=== PATIENT | female | born 2000 | race Native Hawaiian/Other Pacific Islander ===

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

== ENCOUNTER 2019-04-04 19:54 | Emergency (ER) | payer OTHER ==
[~2019-04-04] VITALS: Ht 170.2 cm; Wt 63.5 kg
[~2019-04-04 19:54] MED LIST changes: +IBU600 MG PO
== END 2019-04-04 21:41 | disposition home or self-care (01) ==
LOC: ER 19:54
DX: S69.91XA Unspecified injury of right wrist, hand and finger(s), initial encounter (principal); W01.198A Fall on same level from slipping, tripping and stumbling with subsequent striking against other object, initial encounter; Z88.5 Allergy status to narcotic agent; Z88.8 Allergy status to other drugs, medicaments and biological substances
CPT/HCPCS: 29125; 73110; 99283-25

== ENCOUNTER → 2019-10-25 | Outpatient (CLI) | payer OTHER ==
[2019-10-25 14:50] LABS: Source, Urine Clean Catch
[2019-10-25 20:26] LABS: Bacteria Many /hpf; Red Blood Cells, Urine Not Seen /hpf (0-2); Squamous Epithelial Cells Many /hpf (Few)
[2019-10-25 20:34] LABS: U Amphetamine Screen Not Detected; U Barbituate Screen Not Detected; U Benzodiazapine Screen Not Detected; U Buprenorphine Screen Not Detected; U Cannabinoids Screen Not Detected; U Cocaine Screen Not Detected; U Methadone Screen Not Detected; U Methamphetamine Screen Not Detected; U Opiates Screen Not Detected; U Oxycodone Screen Not Detected; U Phencyclidine Screen Not Detected; U Propoxyphene Screen Not Detected
== END | disposition home or self-care (01) ==
LOC: LAB 12:00 → LAB SHORT 12:00
PROVIDERS: Obstetrics & Gynecology
DX: Z34.01 Encounter for supervision of normal first pregnancy, first trimester (principal)
CPT/HCPCS: 81015; 87077; 87086; 87186

== ENCOUNTER 2020-01-19 13:17 | Emergency (ER) | payer OTHER ==
[~2020-01-19] VITALS: Ht 170.2 cm; Wt 61.2 kg
[~2020-01-19 13:17] MED LIST changes: +PRENATAL TABLE1 EAC2 PO
[2020-01-19 15:45] LABS: Source, Urine Clean Catch
[2020-01-19 15:47] LABS: Appearance, Urine Cloudy (Clear); Bilirubin, Urine Neg (Neg); Blood, Urine Neg (Neg); Color, Urine Yellow (P-Yellow); Glucose Qualitative, Urine Neg (Neg); Ketones, Urine Neg (Neg); Leukocyte Esterase, Urine 1+ (Neg); Nitrite, Urine Neg (Neg); Protein, Urine Neg (Neg); Urobilinogen, Urine NORM (Normal)
[2020-01-19 15:59] LABS: Amorphous Heavy (0-Heavy); Bacteria Few /hpf; Red Blood Cells, Urine 0-2 /hpf (0-2); Squamous Epithelial Cells Few /hpf (Few)
== END 2020-01-19 16:27 | disposition home or self-care (01) ==
LOC: ER 13:17
PROVIDERS: Physician Assistant
DX: O99.89 Other specified diseases and conditions complicating pregnancy, childbirth and the puerperium (principal); R10.12 Left upper quadrant pain; R51 Headache; Z88.5 Allergy status to narcotic agent; Z88.8 Allergy status to other drugs, medicaments and biological substances; Z3A.22 22 weeks gestation of pregnancy
CPT/HCPCS: 76815; 81001; 87086; 87147; 99284-25

== ENCOUNTER 2020-03-12 21:46 | Observation (INO) | payer OTHER ==
[~2020-03-12] VITALS: Ht 167.6 cm; Wt 65.9 kg
[2020-03-12 23:29] LABS: BASOPHILS ABSOLUTE AUTO 0.07 K/mm3 (0.00-0.23); BASOPHILS PERCENT AUTO 1 % (0-2); EOSINOPHILS PERCENT AUTO 2 % (0-6); Hematocrit 30.7 % (33.0-51.0); Hemoglobin 10.3 g/dL (11.5-16.0); IMMATURE GRAN ABSOLUTE AUTO 0.02 K/mm3 (0.00-0.10); IMMATURE GRAN PERCENT AUTO 0 % (0-1); LYMPHOCYTES ABSOLUTE AUTO 2.43 K/mm3 (0.84-5.20); LYMPHOCYTES PERCENT AUTO 25 % (21-46); MONOCYTES ABSOLUTE AUTO 1.01 K/mm3 (0.16-1.47); MONOCYTES PERCENT AUTO 10 % (4-13); Mean Corpuscular HGB 29.5 pg (26.0-34.0); Mean Corpuscular HGB Conc 33.6 g/dL (31.5-36.5); Mean Corpuscular Volume 88 fL (80-100); Mean Platelet Volume 11.1 fL (9.1-12.4); NEUTROPHILS ABSOLUTE AUTO 6.04 K/mm3 (1.96-9.15); NEUTROPHILS PERCENT AUTO 62 % (41-73); Platelet Count 261 K/mm3 (150-400); RDW Coefficient Variation 12.7 % (11.7-14.2); RDW Standard Deviation 40.2 fL (35.1-46.3); Red Blood Cell Count 3.49 M/mm3 (3.80-5.20); White Blood Cell Count 9.77 K/mm3 (4.00-11.30)
[2020-03-12 23:45] LABS: Alanine Aminotransfer (ALT/SGP 20 U/L (12-78); Albumin, Blood 2.4 g/dL (3.4-5.0); Albumin/Globulin Ratio 0.6 (0.8-1.8); Alk Phos 151 U/L (50-136); Anion Gap 6 mmol/L (6-16); Aspartate Aminotrans (AST/SGOT 14 U/L (12-37); Bilirubin, Total 0.2 mg/dL (0.1-1.0); Blood Urea Nitrogen 6 mg/dL (8-24); Bun/Creatinine Ratio 10.2 (12.0-20.0); CO2, Blood 26 mmol/L (21-32); Calcium, Blood 8.6 mg/dL (8.5-10.1); Chloride, Blood 107 mmol/L (98-108); Creatinine, Blood 0.59 mg/dL (0.40-1.00); Glomerular Filtration Rate >60 (60-); Glucose, Blood 74 mg/dL (70-99); Potassium, Blood 3.9 mmol/L (3.5-5.5); Sodium, Blood 139 mmol/L (136-145); Total Protein, Blood 6.4 g/dL (6.4-8.2)
--- NOTE | 2020-03-13 07:16 | NUR ---
pt on EFM, pt answers questions slowly and quietly (like she is unsure of her answer) reports has lower abd pain that comes and goes she reports, reports has a headache, but has had the headache for a while. pt mom is her support person. pt given fresh ice water
--- NOTE | 2020-03-13 07:44 | NUR ---
dr anderson in talking with pt
--- NOTE | 2020-03-13 08:09 | NUR ---
DC INSTRUCTIONS GONE OVER WITH PT AND MOM, VERBALIZED UNDERSTANDING, SL DCD CATH INTACT, PT TO GET DRESSED AND GO HOME. DID GIVE FAMILY BITH PLACE NUMBER TO MOM AND PT TO CALL WITH [facility] IF HAD ANY
== END 2020-03-13 08:35 | disposition home or self-care (01) ==
LOC: OBS 21:46 → BC 21:47 → OBS 03-13 00:45 → BC 03-13 00:58
PROVIDERS: ADMIT Advanced Practice Midwife
DX: O26.853 Spotting complicating pregnancy, third trimester (principal); O99.333 Smoking (tobacco) complicating pregnancy, third trimester; F17.210 Nicotine dependence, cigarettes, uncomplicated; Z3A.30 30 weeks gestation of pregnancy; O99.513 Diseases of the respiratory system complicating pregnancy, third trimester; J45.909 Unspecified asthma, uncomplicated
CPT/HCPCS: 59025; 80053; 81003; 82731; 85025; 96360; 96361; A9270; G0378; J7120

== ENCOUNTER → 2020-04-25 | Outpatient (CLI) | payer OTHER ==
[~2020-04-25] MED LIST changes: +Percocet 5-3251 EACH PO
== END | disposition home or self-care (01) ==
LOC: LAB SHORT 15:26
DX: O09.93 Supervision of high risk pregnancy, unspecified, third trimester (principal)
CPT/HCPCS: 87081; 87150

== ENCOUNTER 2020-05-03 14:00 | Inpatient (IN) | payer OTHER ==
[~2020-05-03] VITALS: Ht 170.2 cm; Wt 69.0 kg
[~2020-05-03 14:00] MED LIST changes: -Percocet 5-3251 EACH PO
--- NOTE | 2020-05-03 17:13 | NUR ---
LABS DRAWN URINE SENT TO LAB
[2020-05-03 17:14] LABS: Influenza A, PCR Negative (NEGATIVE); Influenza B, PCR Negative (NEGATIVE); Resp Syncytial Virus, PCR Negative (NEGATIVE); SARS-Cov-2 (COVID-19) PCR, MMC Negative (NEGATIVE)
[2020-05-03 17:23] LABS: BASOPHILS ABSOLUTE AUTO 0.05 K/mm3 (0.00-0.23); BASOPHILS PERCENT AUTO 1 % (0-2); EOSINOPHILS PERCENT AUTO 1 % (0-6); Hematocrit 35.3 % (33.0-51.0); Hemoglobin 11.6 g/dL (11.5-16.0); IMMATURE GRAN ABSOLUTE AUTO 0.03 K/mm3 (0.00-0.10); IMMATURE GRAN PERCENT AUTO 0 % (0-1); LYMPHOCYTES PERCENT AUTO 25 % (21-46); MONOCYTES ABSOLUTE AUTO 0.67 K/mm3 (0.16-1.47); MONOCYTES PERCENT AUTO 9 % (4-13); Mean Corpuscular HGB 28.8 pg (26.0-34.0); Mean Corpuscular HGB Conc 32.9 g/dL (31.5-36.5); Mean Corpuscular Volume 88 fL (80-100); Mean Platelet Volume 11.1 fL (9.1-12.4); NEUTROPHILS ABSOLUTE AUTO 4.57 K/mm3 (1.96-9.15); NEUTROPHILS PERCENT AUTO 63 % (41-73); Platelet Count 275 K/mm3 (150-400); RDW Coefficient Variation 13.7 % (11.7-14.2); RDW Standard Deviation 43.9 fL (35.1-46.3); Red Blood Cell Count 4.03 M/mm3 (3.80-5.20); White Blood Cell Count 7.22 K/mm3 (4.00-11.30)
[2020-05-03 17:44] LABS: Creatinine, Urine Random 51.2 mg/dL (27.00-270.00); Protein, Urine Random 14.2 mg/dL (0.0-11.9); Protein/Creat Ratio, Ur Random 0.3
[2020-05-03 17:44] LABS: Alanine Aminotransfer (ALT/SGP 14 U/L (12-78); Albumin, Blood 2.6 g/dL (3.4-5.0); Albumin/Globulin Ratio 0.6 (0.8-1.8); Alk Phos 253 U/L (50-136); Anion Gap 9 mmol/L (6-16); Aspartate Aminotrans (AST/SGOT 18 U/L (12-37); Bilirubin, Total 0.2 mg/dL (0.1-1.0); Blood Urea Nitrogen 8 mg/dL (8-24); Bun/Creatinine Ratio 13.9 (12.0-20.0); CO2, Blood 22 mmol/L (21-32); Calcium, Blood 9.5 mg/dL (8.5-10.1); Chloride, Blood 105 mmol/L (98-108); Creatinine, Blood 0.57 mg/dL (0.40-1.00); Globulin, Blood 4.5 g/dL (2.2-4.0); Glomerular Filtration Rate >60 (60-); Glucose, Blood 74 mg/dL (70-99); Sodium, Blood 136 mmol/L (136-145); Total Protein, Blood 7.1 g/dL (6.4-8.2)
[2020-05-03 23:10] LABS: PCO2 Cord - Arterial 63.7 mmHg (40-50); pH Cord - Arterial 7.23 (7.28-7.35)
[2020-05-03 23:14] LABS: PCO2 Cord - Venous 56.6 mmHg (40-50); PO2 Cord - Venous 16 mmHg (28-32); pH Umbilical Cord - Venous 7.28 (7.26-7.35)
[2020-05-04 00:45] LABS: PO2 Cord - Arterial < 13 mmHg (16-20)
[2020-05-04 04:50] LABS: Hematocrit 29.1 % (33.0-51.0); Hemoglobin 9.9 g/dL (11.5-16.0); Mean Corpuscular HGB 29.1 pg (26.0-34.0); Mean Corpuscular Volume 86 fL (80-100); Mean Platelet Volume 11.2 fL (9.1-12.4); Platelet Count 234 K/mm3 (150-400); RDW Coefficient Variation 13.2 % (11.7-14.2); RDW Standard Deviation 41.1 fL (35.1-46.3); White Blood Cell Count 11.04 K/mm3 (4.00-11.30)
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
--- NOTE | 2020-05-04 18:13 | NUR ---
CORE REFERRAL COMPLETED ON PT
--- NOTE | 2020-05-05 07:10 | NUR ---
pt called RN to room to take baby so she could sleep, pt made aware that she has 2 support people in her room, her boyfriend is sitting in a chair and her mom is laying in the dad bed trying to rest, that the baby needs to stay in their room and cant be out at the desk. the fob said he could watch the baby since he is going to be up watching TV. they were also made aware that we are trying to keep baby's in the room as much as possible due to covid and limiting exposure to other people, (today there is no floor OBT to watch baby in nursery). patient reports she only slep 2 hours last night, encourged her to sleep while the boyfriend watched the baby. he turned the tv on, baby in crib under dry erase board and boyfriend in front on monitor turned the tv on. encouraged them to take turns sleeping, one awake watchig baby and one sleeps. 2 support people were aloud for this patient, she has some developmental delays. when she was here for her bpp/nst and her id bracelet was placed on her (by nanci storyc), she reports she sometimes has a hard time spelling her name. she was able to spell her name and give date of , but she had to think about it. there is some concern about her caring for this baby.
--- NOTE | 2020-05-05 08:17 | NUR ---
went in room, baby was crying, mom was smiling, trying to feed baby, reports he is hungery, he just feed from a bottle at 0700 24cc, he was just laying on her chest with mouth on nipple, explained that baby just might want to be held and snuggled since he just feed. she asked if RN wanted to hold him. unsure is she ment for me to stay in room and hold him or just to hold him for a minute since i helped admit her. foleah reports she cant stay in here she has to do other stuff, so he wasnt sure what she ment either, i held him for a couple of minutes and gave him to fob who had a pillow ready on his lap to hold baby. mom was smiling and reported might try to get up and walk soon.
--- NOTE | 2020-05-05 09:56 | NUR ---
pt is sleeping, pt mom is sitting in chair holding baby. fob is sleeping on dad bed
--- NOTE | 2020-05-05 10:41 | NUR ---
pt coninutes to sleep, pt mom reports going to leave soon and will wake pt up when she leaves. darnell just went to sleep at 0945ish and is sleeping on the dad bed
--- NOTE | 2020-05-05 11:45 | NUR ---
asked approperiate questions about how heavy she could lift, wanted to make sure she could lift baby weight strauss, sh cnm reports about 10lbs is what she can lift. pt mom left to go home and reported would be back at 7pm unless she was needed. the pt reported she would need her sooner and said for her to come back at 530-6pm. pt mom reported would be back around there. the mom had to go home and get ready for baby to come home
--- NOTE | 2020-05-05 12:42 | NUR ---
called rn in room to put baby in bed, she is afraid to do it herself, encoruaged that next time have someone stand by so she can try, she reports will wait until her mom comes back, evangelina (fob is sleeping on dad bed) encouraged for her to wake evangelina up and try next time, that her mom isnt always going to be able to help her. the patient is very dependent on her mom to do things or help her instead of fob.
--- NOTE | 2020-05-05 13:19 | NUR ---
amubulate in [place], pt tried to walk the [place] in her abd binder, and tank top only, encouraged her back in room and got her a robe. pt did well on her walk, talked to baby on the walk. pt reports has help at home her mom and grandma, but that the baby was her best friend. pt is very loving to baby and talks and smiles at baby, just scared to do daily care with him, but didnt seem scared to bottle feed him when she did.
--- NOTE | 2020-05-05 14:55 | NUR ---
pt back from #3 walk, walked her second walk and 30 min later walked again. when go back to room, baby a little fussy, she talked to the baby then realized she needed to check his diaper, it was dry and clean, then she woke FOB up to help swaddle baby because she couldnt wrap his arms for swaddling, fob go up helped her swaddle the baby and then mom got back in bed with baby in her arms, she did call for rn to bring her a pillow for her arm cause it was falling asleep holding the baby. pt talks and smiles at baby
--- NOTE | 2020-05-05 17:27 | NUR ---
pt not crazy about the dinner she choose, encouraged her to walk to cafeteria with her mom and a food voucher to get something different. she was worried on who would watch the baby. darnell is still sleeping on the dad bed, encouraged to wake him up and have him watch baby while she walked to cafeteria. darnell has been sleeping since 944, he has woken up a few times to help mom for 10-15min then goes back to sleep, or appears to be sleeping. patient relies more on her mom than fob to help her. baby is sleeping in crib wrapped
--- NOTE | 2020-05-05 18:12 | NUR ---
up walking in [place], she is doing good. she still needs to work on baby care and not being afraid of the baby. she doesnt use fob much for helping out and relies more on her mom for help. her mom has a full job at home taking care of a 23 year old son with autism and adhd on medications, a 10 year old with autism not potty trained, and her parents (her mom helps, but her dad has dementia and parkinsons). encouraged her mom to have wilson do more of the baby care and encourage her to do the diaper changes, her mom reports wilson has a schizo (A)? disorder, bipolar, high anxiety, depression and wilson reports she has ptsd, not on any medications with an IQ of 16 per her mom. wilson has an anxiety do to help her out at home. cps was called yesterday and should call tomorrow to let us know if staffing this. there are concerns with wilson having her mom do alot of the care and not doing as much of it. that she is afraid to change a diaper or change the baby's cloths. with encouragement she tries, but when her mom is here she just tries to get her mom to do it. darnell has slept, he does help out when she wakes him up, but says he has stomach problems and his stomach is bothering him??
--- NOTE | 2020-05-06 09:00 | NUR ---
DR RIOS AND DR PETERSEN AT BEDSIDE. DISCUSSING PLAN OF CARE WITH PT. ALSO ASKING ABOUT LIVING SITUATION. PT, FOB AND MOTHER IN ROOM. PLAN IS FOR PT TO LIVE WITH MOM AND MOM PLANS TO HELP WITH . SAYS IT IS A SAFE AREA. MOM HAS BEEN HELPING TAKE CARE OF INFANT WHILE IN HOSPITAL AND PLANS TO CONTINUE THIS AT HOME. THIS MORNING PT HAS BF AND BOTTLE FED . HAS BEEN APPROPRIATE WITH INFANT CARE AND QUESTIONS ASKED.
[2020-05-06] MEDS ORDERED: Percocet 5-3251 EACH PO (10:34)
--- NOTE | 2020-05-06 10:49 | NUR ---
RN ROUNDED TO HELP W/ . INSTRUCT/DEMO WIDENING LATCH, CORRECT POSITIONING, AND NIPPLE SHAPE AFTER FEEDS. INSTRUCTED PT AND PT'S SUPPORT PERSON TO FEED NB EVERY 2-3 HOURS, FOR NO LONGER THAN 15-20 MINUTES AT THE BREAST, FOLLOWED BY SUPPLEMENTING NB AFTER EACH FEED W/ A BOTTLE, ALLOWING NB TO TAKE MUCH VOLUME NB WANTS. PT AND PT'S SUPPORT PERSON VERBALIZED UNDERSTANDING.
--- NOTE | 2020-05-06 13:35 | NUR ---
PT EXCITED TO GO HOME. FILLING OUT PAPER WORK WITHOUT ASSISTANCE.
--- NOTE | 2020-05-06 14:27 | NUR ---
PT AND FOB UP IN ROOM TENDING TO INFANT. MOM FINISHED BF AND FOB CHANING INFANT INTO GOING HOME CLOTHING. DISCHARGE INSTRUCTIONS REVIEWED WITH MOM, FOB AND GRANDMA. INSTRUCTIONS SIGNED. BANDS MATCHED.
== END 2020-05-06 14:50 | disposition home or self-care (01) | DRG 787 ==
LOC: BC 14:00 → OBS 14:00 → BC 14:01 → OBS 15:35 → BC 15:37
PROVIDERS: ADMIT Obstetrics & Gynecology
PROC: 3E0P7VZ Introduction of Hormone into Female Reproductive, Via Natural or Artificial Opening (ICD-10-PCS; 2020-05-03)
PROC: 10D00Z1 Extraction of Products of Conception, Low, Open Approach (ICD-10-PCS; principal; 2020-05-03 22:00)
DX: O76 Abnormality in fetal heart rate and rhythm complicating labor and delivery (principal); O41.03X0 Oligohydramnios, third trimester, not applicable or unspecified; O36.5930 Maternal care for other known or suspected poor fetal growth, third trimester, not applicable or unspecified; O99.824 Streptococcus B carrier state complicating childbirth; Z3A.37 37 weeks gestation of pregnancy; Z37.0 Single live birth; O99.892 Other specified diseases and conditions complicating childbirth; R03.0 Elevated blood-pressure reading, without diagnosis of hypertension; Z20.828 Contact with and (suspected) exposure to other viral communicable diseases; O99.334 Smoking (tobacco) complicating childbirth; F17.210 Nicotine dependence, cigarettes, uncomplicated; R62.50 Unspecified lack of expected normal physiological development in childhood
CPT/HCPCS: 0241U; 36415; 59025; 76819; 80053; 82570; 82803; 84156; 85025; 85027; 86850; 86900; 86901; A9270; J0690; J1885; J2370; J2405; J2590; J2765; J3010; J7120

== ENCOUNTER 2020-07-23 17:49 | Emergency (ER) | payer OTHER ==
[~2020-07-23] VITALS: Ht 170.2 cm; Wt 61.2 kg
[~2020-07-23 17:49] MED LIST changes: +Percocet 5-3251 EACH PO
== END 2020-07-23 20:36 | disposition home or self-care (01) ==
LOC: ER 17:49
DX: S60.211A Contusion of right wrist, initial encounter (principal); F17.200 Nicotine dependence, unspecified, uncomplicated; Z88.5 Allergy status to narcotic agent; Z88.8 Allergy status to other drugs, medicaments and biological substances; W22.8XXA Striking against or struck by other objects, initial encounter
CPT/HCPCS: 73110; 99283-25

== ENCOUNTER 2021-05-02 22:33 | Emergency (ER) | payer OTHER ==
[~2021-05-02] VITALS: Ht 175.3 cm; Wt 54.4 kg
== END 2021-05-03 00:36 | disposition home or self-care (01) ==
LOC: ER 22:33
DX: M25.531 Pain in right wrist (principal); Z88.5 Allergy status to narcotic agent; F17.200 Nicotine dependence, unspecified, uncomplicated; W01.0XXA Fall on same level from slipping, tripping and stumbling without subsequent striking against object, initial encounter
CPT/HCPCS: 73110; A9270

== ENCOUNTER 2022-12-12 19:24 | Emergency (ER) | payer OTHER ==
[~2022-12-12] VITALS: Ht 172.7 cm; Wt 74.8 kg
[2022-12-12 20:04] VITALS: BP 139/65
[2022-12-12] MEDS ORDERED: Cleocin HCl150 MG PO (22:04)
== END 2022-12-12 22:18 | disposition home or self-care (01) ==
LOC: ER 19:24
DX: K08.89 Other specified disorders of teeth and supporting structures (principal); Z88.5 Allergy status to narcotic agent; Z88.8 Allergy status to other drugs, medicaments and biological substances; F17.200 Nicotine dependence, unspecified, uncomplicated
CPT/HCPCS: 96372; 99282-25; A9270; J1885

== ENCOUNTER 2022-12-31 20:42 | Emergency (ER) | payer OTHER ==
[~2022-12-31] VITALS: Ht 170.2 cm; Wt 61.7 kg
[~2022-12-31 20:42] MED LIST changes: +Cleocin HCl150 MG PO
[2022-12-31 21:05] VITALS: BP 125/66
[2022-12-31] MEDS ORDERED: ONDA4 PO (23:09)
== END 2022-12-31 23:19 | disposition home or self-care (01) ==
LOC: ER 20:42
DX: K08.89 Other specified disorders of teeth and supporting structures (principal); F17.200 Nicotine dependence, unspecified, uncomplicated; Z88.5 Allergy status to narcotic agent; Z79.2 Long term (current) use of antibiotics; Z79.899 Other long term (current) drug therapy
CPT/HCPCS: 96372; 99282; A9270; J1885

== ENCOUNTER 2023-01-03 11:34 | Emergency (ER) | payer OTHER ==
[~2023-01-03] VITALS: Ht 170.2 cm; Wt 59.0 kg
[~2023-01-03 11:34] MED LIST changes: +ONDA4 PO
[2023-01-03] MEDS ORDERED: IBUP600 PO (12:54)
[2023-01-03] MEDS ORDERED: Acetaminophen650 M1 PO (12:54)
[2023-01-03] MEDS ORDERED: Percocet 5-3251 EACH PO (13:22)
[2023-01-03] MEDS ORDERED: Clindamycin HC150 MG PO (13:22)
[2023-01-03 13:30] VITALS: BP 142/89
== END 2023-01-03 13:33 | disposition home or self-care (01) ==
LOC: ER 11:34
DX: K04.7 Periapical abscess without sinus (principal); F17.200 Nicotine dependence, unspecified, uncomplicated; Z88.5 Allergy status to narcotic agent; Z88.1 Allergy status to other antibiotic agents; Z79.899 Other long term (current) drug therapy
CPT/HCPCS: 99282

== ENCOUNTER 2023-06-07 21:10 | Emergency (ER) | payer OTHER ==
[~2023-06-07] VITALS: Ht 170.2 cm; Wt 54.4 kg
[~2023-06-07 21:10] MED LIST changes: +Acetaminophen650 M1 PO; +Clindamycin HC150 MG PO; +IBUP600 PO
[2023-06-07 22:17] VITALS: BP 118/69
== END 2023-06-07 22:28 | disposition home or self-care (01) ==
LOC: ER 21:10
DX: S93.402A Sprain of unspecified ligament of left ankle, initial encounter (principal); F17.200 Nicotine dependence, unspecified, uncomplicated; F90.9 Attention-deficit hyperactivity disorder, unspecified type; F31.9 Bipolar disorder, unspecified; Z88.0 Allergy status to penicillin; Z88.5 Allergy status to narcotic agent; X50.9XXA Other and unspecified overexertion or strenuous movements or postures, initial encounter; Y92.480 Sidewalk as the place of occurrence of the external cause; Y93.01 Activity, walking, marching and hiking
CPT/HCPCS: 73610; 99283-25

== ENCOUNTER 2023-09-18 19:05 | Emergency (ER) | payer OTHER ==
[~2023-09-18] VITALS: Ht 170.2 cm; Wt 56.7 kg
[2023-09-18 19:25] VITALS: BP 109/70
== END 2023-09-18 21:07 | disposition home or self-care (01) ==
LOC: ER 19:05
DX: M65.4 Radial styloid tenosynovitis [de Quervain] (principal); Z88.5 Allergy status to narcotic agent; Z88.8 Allergy status to other drugs, medicaments and biological substances
CPT/HCPCS: 73090; 73130

== ENCOUNTER 2024-09-27 21:11 | Emergency (ER) | payer OTHER ==
[~2024-09-27] VITALS: Ht 170.2 cm; Wt 59.0 kg
[~2024-09-27 21:11] MED LIST changes: +ACET500 PO; +IBUP800 PO; +OXAYDO5 M1 PO
[2024-09-27 22:22] LABS: BASOPHILS ABSOLUTE AUTO 0.14 K/mm3 (0.00-0.23); BASOPHILS PERCENT AUTO 2 % (0-2); EOSINOPHILS ABSOLUTE AUTO 0.24 K/mm3 (0.00-0.68); EOSINOPHILS PERCENT AUTO 3 % (0-6); Hematocrit 32.6 % (33.0-51.0); IMMATURE GRAN ABSOLUTE AUTO 0.02 K/mm3 (0.00-0.10); IMMATURE GRAN PERCENT AUTO 0 % (0-1); LYMPHOCYTES PERCENT AUTO 38 % (21-46); MONOCYTES ABSOLUTE AUTO 0.67 K/mm3 (0.16-1.47); MONOCYTES PERCENT AUTO 8 % (4-13); Mean Corpuscular HGB 18.1 pg (26.0-34.0); Mean Corpuscular HGB Conc 27.6 g/dL (31.5-36.5); Mean Corpuscular Volume 66 fL (80-100); Mean Platelet Volume 10.3 fL (9.1-12.4); NEUTROPHILS ABSOLUTE AUTO 4.48 K/mm3 (1.96-9.15); NEUTROPHILS PERCENT AUTO 50 % (41-73); Platelet Count 542 K/mm3 (150-400); RDW Coefficient Variation 16.6 % (11.7-14.2); RDW Standard Deviation 38.5 fL (35.1-46.3); Red Blood Cell Count 4.96 M/mm3 (3.80-5.20); White Blood Cell Count 8.95 K/mm3 (4.00-11.30)
[2024-09-27 22:35] LABS: Source, Urine Clean Catch
[2024-09-27 22:39] LABS: Appearance, Urine Hazy (Clear); Bilirubin, Urine Neg (Neg); Blood, Urine 5+ (Neg); Glucose Qualitative, Urine Neg (Neg); Ketones, Urine Neg (Neg); Leukocyte Esterase, Urine 1+ (Neg); Nitrite, Urine Neg (Neg); Protein, Urine 2+ (Neg); Urobilinogen, Urine NORM (Normal)
[2024-09-27 22:46] LABS: Albumin, Blood 4.3 g/dL (3.4-5.0); Bilirubin, Total 0.3 mg/dL (0.1-1.0); Bun/Creatinine Ratio 22.7 (12.0-20.0); Calcium, Blood 9.4 mg/dL (8.5-10.1); Creatinine, Blood 0.66 mg/dL (0.40-1.00); Globulin, Blood 4.5 g/dL (2.2-4.0); Potassium, Blood 3.6 mmol/L (3.5-5.5); Total Protein, Blood 8.8 g/dL (6.4-8.2)
[2024-09-27 22:55] LABS: Color, Urine Pale Yellow (P-Yellow)
[2024-09-27 22:57] LABS: Bacteria Mod /hpf; Red Blood Cells, Urine 50-100 /hpf (0-2); Squamous Epithelial Cells Mod /hpf (Few)
== END 2024-09-27 23:45 | disposition home or self-care (01) ==
LOC: ER 21:11
PROVIDERS: Emergency Medicine; Student in an Organized Health Care Education/Training Program
DX: O20.0 Threatened abortion (principal); O99.331 Smoking (tobacco) complicating pregnancy, first trimester; F17.210 Nicotine dependence, cigarettes, uncomplicated; Z3A.00 Weeks of gestation of pregnancy not specified; Z88.0 Allergy status to penicillin; Z88.1 Allergy status to other antibiotic agents; Z88.5 Allergy status to narcotic agent; Z91.040 Latex allergy status
CPT/HCPCS: 76801; 76817; 80053; 81001; 83690; 84702; 85025; 86850; 86900; 86901; 87077; 87086; 87186; 99284-25

== ENCOUNTER → 2024-11-23 | Outpatient (CLI) | payer OTHER ==
[2024-11-23 15:12] LABS: Source, Urine Voided
[2024-11-23 17:21] LABS: Red Blood Cells, Urine 0-2 /hpf (0-2); White Blood Cells, Urine 0-2 /hpf (0-5)
[2024-11-23 19:52] LABS: U Amphetamine Screen Not Detected; U Barbituate Screen Not Detected; U Benzodiazapine Screen Not Detected; U Buprenorphine Screen Not Detected; U Cannabinoids Screen Not Detected; U Cocaine Screen Not Detected; U Methadone Screen Not Detected; U Methamphetamine Screen Not Detected; U Opiates Screen Not Detected; U Oxycodone Screen Not Detected; U Phencyclidine Screen Not Detected
== END ==
LOC: LAB SHORT 15:11 → LAB 15:11
PROVIDERS: Obstetrics & Gynecology
DX: Z34.81 Encounter for supervision of other normal pregnancy, first trimester (principal)
CPT/HCPCS: 81015; 87077; 87086; 87186